=== PATIENT | female | born 1985 | race Caucasian/White ===

== ENCOUNTER → 2020-09-08 | Outpatient (CLI) | payer OTHER ==
--- NOTE | 2020-09-08 14:16 | RAD ---
CT ABDOMEN+PELVIS WO History: Abdominal pain, renal stones. Comparison: None. Technique: CT of the abdomen and pelvis without contrast. Findings: Lung bases: Clear lungs. No pleural or pericardial effusion. General abdomen: No ascites. No free air. Liver : Normal in size and attenuation. No masses seen. Gallbladder/Biliary Tree: Normal gallbladder. No intrahepatic or extrahepatic biliary ductal dilatati on. Pancreas: Normal. Spleen: Normal in size and attenuation. Adrenal Glands: ?Normal. Genitourinary: No hydronephrosis or hydroureter.? No renal masses identified. Normal partially disten ded bladder contour. Gastrointestinal: Normal appendix. No small bowel obstruction. Moderate to excessive colonic stool bu rden. Lymph nodes: No lymphadenopathy. Vessels: Unremarkable. Pelvic Organs: ?No masses. Soft tissues: Spinal stimulator device in the lower left flank with leads projecting towards the uppe r thoracic spine. Bones: No acute or aggressive lesions. ? Impression: 1. Moderate to excessive colonic stool burden. 2. No acute findings in the abdomen and pelvis. No nephrolithiasis or hydronephrosis. ------ Exposure: One or more of the following individualized dose reduction techniques were utilized for thi s examination: 1. Automated exposure control 2. Adjustment of the mA and/or kV according to patient size 3. Use of iterative reconstruction technique. Electronically signed by: Mark Everett MD (09/08/2020 2:14 PM) [facility]
== END ==
LOC: CT 13:30
PROVIDERS: ATTEND Specialist
DX: N20.0 Calculus of kidney (principal)
CPT/HCPCS: 74176